=== PATIENT | female | born 1950 | race Caucasian/White ===

== ENCOUNTER 2017-08-23 13:32 | Emergency (ER) | payer MEDICARE ==
[~2017-08-23] VITALS: Ht 157.5 cm; Wt 65.8 kg
--- NOTE | 2017-08-23 13:39 | NUR ---
[address], C/O DIZZINESS, DIAPHORETIC, HYPOTENSIVE ON SCENE, BP 62/23. 500ML NS GIVEN SCREENER AND BLENDER. BP NOW 92/62 . A/OX 4. BREATHING EVEN AND UNLAOBRED. NO SOB. TRANSFERRED TO BED, VITALS STABLE, NAD. SAFETY AND COMFORT MEASURSES IN PLACE. AWAITING MD ORDERS.
[2017-08-23] MEDS ORDERED: LISI1TAB9 PO (14:20)
[2017-08-23] MEDS ORDERED: ASPI-1169 PO (14:21)
[2017-08-23] MEDS ORDERED: LEVO50TA8 PO (14:21)
--- NOTE | 2017-08-23 14:24 | NUR ---
IVF STARTED PER MD ORDERS.
[2017-08-23 14:29] LABS: BASOPHILS # (AUTO) 0.2 /CMM (0.0-0.2); BASOPHILS % (AUTO) 1.6 % (0.0-2.0); EOSINOPHILS % (AUTO) 0.4 % (0.0-6.0); HEMATOCRIT 41 % (33-45); HEMOGLOBIN 14.5 g/dL (11.5-14.8); LYMPHOCYTES # (AUTO) 1.9 /CMM (0.8-4.8); LYMPHOCYTES % (AUTO) 16.3 % (20.0-44.0); MEAN CORPUSCULAR HEMOGLOBIN 36 PG (26.0-33.0); MEAN CORPUSCULAR HGB CONC 36 g/dl (31.0-36.0); MEAN CORPUSCULAR VOLUME 100 fL (82-100); MONOCYTES # (AUTO) 0.7 /CMM (0.1-1.30); MONOCYTES % (AUTO) 5.7 % (2.0-12.0); NEUTROPHILS # (AUTO) 8.6 /CMM (1.8-8.9); PLATELET COUNT (AUTO) 305 /CMM (150-450); RDW COEFFICIENT OF VARIATION 12.9 (11.5-15.0); RED BLOOD CELL COUNT(AUTO) 4.07 MIL/uL (4.0-5.2); WHITE BLOOD COUNT (AUTO) 11.4 K/uL (4.3-11.0)
[2017-08-23] MEDS ORDERED: IV NS 0.9% 1,000 ML BAG IV ONE (14:30)
[2017-08-23 14:38] LABS: CALCIUM, SERUM 9.3 mg/dL (8.5-10.1); CARBON DIOXIDE 24 mmol/L (21-32); CHLORIDE 99 mmol/L (98-107); CREATININE 1.9 mg/dL (0.6-1.3); GLUCOSE 126 mg/dL (74-106); POTASSIUM 3.7 mmol/L (3.5-5.1); SODIUM SERUM 135 mmol/L (136-145); UREA NITROGEN, BLOOD 27 mg/dL (7-18)
--- NOTE | 2017-08-23 14:38 | NUR ---
EQUIPMENT INSTALLER AT BEDSIDE.
[2017-08-23 14:48] LABS: TROPONIN I < 0.017 ng/mL (0.00-0.056)
[2017-08-23] MEDS ORDERED: IV NS 0.9% 500 ML IV ONE (15:30)
[2017-08-23 16:23] LABS: CALCIUM, SERUM 8.4 mg/dL (8.5-10.1); CREATININE 1.5 mg/dL (0.6-1.3); POTASSIUM 4.2 mmol/L (3.5-5.1)
--- NOTE | 2017-08-23 16:51 | NUR ---
URINE OBTAINED AND SENT TO LAB.
[2017-08-23 17:06] LABS: APPEARANCE,URINE Slightly Cloudy (CLEAR); BILIRUBIN,URINE Negative (NEGATIVE); BLOOD, URINE Negative Ery/uL (NEGATIVE); COLOR,URINE Yellow (YELLOW); KETONES,URINE Negative (NEGATIVE); LEUKOCYTE ESTERASE ,URINE Small (NEGATIVE); NITRITE, URINE Negative (NEGATIVE); PH,URINE 5.5 (5.0-8.0); PROTEIN,URINE Negative (NEGATIVE); UGLUCOSE Negative (NEGATIVE); UROBILINOGEN,URINE 0.2 EU/dL (0.2)
[2017-08-23 17:26] LABS: RBC,URINE 0-2 /HPF (0-2)
[2017-08-23 17:27] LABS: BACTERIA,URINE Moderate /HPF (None Seen); SQUAMOUS EPITHELIAL CELL,UR Many /HPF (None Seen); URIC ACID CRYSTALS,URINE Few /HPF (None Seen)
[2017-08-23] MEDS ORDERED: MORPHINE SULFATE INJ 2 MG/ML DISP.SYRIN IV ONE (17:30)
[2017-08-23 17:50] VITALS: BP 132/61
--- NOTE | 2017-08-23 17:51 | NUR ---
IV removed. Catheter intact and site benign. Pressure and 4x4 applied to site. No bleeding noted. Patient discharged to home in stable condition. Written and verbal after care instructions given. Patient verbalizes understanding of instruction.
== END 2017-08-23 17:50 | disposition home or self-care (01) ==
LOC: ER 13:34
DX: R55 Syncope and collapse (principal); I95.1 Orthostatic hypotension; I10 Essential (primary) hypertension; F10.10 Alcohol abuse, uncomplicated; Z79.82 Long term (current) use of aspirin; Z88.8 Allergy status to other drugs, medicaments and biological substances; Z98.890 Other specified postprocedural states
CPT/HCPCS: 36415; 71045-TC; 80048-TC; 81000-TC; 82962-TC; 84484-TC; 85025-TC; 87086-TC; J7030; J7040